=== PATIENT | female | born 1980 | race Caucasian/White ===

== ENCOUNTER 2018-12-16 12:53 | Emergency (ER) | payer BC ==
[2018-12-16 13:21] LABS: BASOPHILS # (AUTO) 0.1 10^3/uL (0.0-0.1); BASOPHILS % (AUTO) 0.6 %; HGB - HEMOGLOBIN 13.3 g/dL (12.0-16.0); LYMPHOCYTES % (AUTO) 4.8 %; MEAN CORPUSCULAR HEMOGLOBIN 26.7 pg (27.0-31.0); MEAN CORPUSCULAR HGB CONC 31.7 g/dL (32.0-36.0); MEAN CORPUSCULAR VOLUME 84.1 fL (81.0-99.0); MEAN PLATELET VOLUME 9.2 fL (7.9-10.8); MONOCYTES # (AUTO) 0.5 10^3/uL (0.0-1.0); MONOCYTES % (AUTO) 2.4 %; NEUTROPHILS # (AUTO) 18.6 10^3/uL (1.5-6.6); NEUTROPHILS % (AUTO) 91.5 %; PLT - PLATELET COUNT 453 10^3/uL (130-450); RED BLOOD COUNT 4.98 10^6/uL (4.20-5.40); RED CELL DISTRIBUTION WIDTH 13.2 % (12.0-15.0); WHITE BLOOD COUNT 20.4 x10^3/uL (4.8-10.8)
[2018-12-16 13:33] LABS: ALBUMIN 4.6 g/dL (3.2-5.5); ALBUMIN/GLOBULIN RATIO 1.3 (1.0-2.2); BILIRUBIN,TOTAL 0.7 mg/dL (0.2-1.0); CALCIUM 9.4 mg/dL (8.5-10.3); CREATININE 0.5 mg/dL (0.4-1.0); TOTAL PROTEIN 8.1 g/dL (6.7-8.2)
[2018-12-16] MEDS ORDERED: ONDANSETRON 4 MG/2 ML VIAL IVP STA (13:49)
[2018-12-16] MEDS ORDERED: SODIUM CHLORIDE 0.9% 1,000 ML IV ONE (13:49)
[2018-12-16] MEDS ORDERED: MORPHINE 2 MG/ML CARPUJECT IVP STA (13:53)
--- NOTE | 2018-12-16 15:36 | ED Physician Documentation ---
PD HPI NVD - Stated complaint Stated Complaint: ABD PX - Chief complaint Chief Complaint: Abd Pain - History obtained from History obtained from: Patient - History of Present Illness Timing - onset: Last night Timing - duration: Hours Timing - details: Abrupt onset Severity Comments: moderate abdominal pain, located in the epigastric region without radiation Associated symptoms: Abdominal pain. No: Fever, Chest pain, Hematemesis, Melena, Hematochezia, Near syncope / syncope, Loss of appetite, Hematuria, Vaginal bleeding, Vaginal dc, Testicular pain Contributing factors: Bad food (thinks she ate some bad fish last night). No: Sick contact Improved by: Other (nothing) Worsened by: Eating, Other (or drinking) Similar symptoms before: Has not had sx before - Treatment prior to arrival Treatment prior to arrival: none - Additonal information Additional information: Pt reports multiple episodes of vomiting, has nothing left in her stomach anymore. Has been unable to tolerate fluids Review of Systems Ten Systems: 10 systems reviewed and negative Constitutional: denies: Fever Cardiac: reports: Reviewed and negative Respiratory: reports: Reviewed and negative GI: reports: Abdominal Pain, Nausea, Vomiting. denies: Abdominal Swelling, Constipation, Diarrhea, Hematemesis, Bloody / black stool Neurologic: reports: Reviewed and negative Immunocompromised: reports: Reviewed and negative PD PAST MEDICAL HISTORY - Past Medical History Past Medical History: No - Present Medications Home Medications: Ambulatory Orders Medication Instructions Recorded Confirmed Ondansetron Odt [Zofran] 4 mg TL Q6H PRN #10 tablet 12/16/18 - Allergies Allergies/Adverse Reactions: Allergies Allergy/AdvReac Type Severity Reaction Status Date / Time No Known Drug Allergies Allergy Verified 12/16/18 13:06 PD ED PE NORMAL - Vitals Vital signs reviewed: Yes - General General: Alert and oriented X 3, No acute distress, Well developed/nourished - HEENT HEENT: Atraumatic - Neck Neck: Supple, no meningeal sign, No JVD - Cardiac Cardiac: RRR - Respiratory Respiratory: No respiratory distress - Abdomen Abdomen: Soft, Non distended, Other (mild epigastric tenderness, no guarding or rebound ) - Female Female : Deferred - Rectal Rectal: Deferred - Back Back: No CVA TTP - Derm Derm: Normal color, Warm and dry, No rash - Neuro Neuro: Alert and oriented X 3 Eye Opening: Spontaneous Motor: Obeys Commands Verbal: Oriented GCS Score: 15 - Psych Psych: Normal mood, Normal affect Results - Vitals Vitals: Vital Signs - 24 hr 12/16/18 13:02 Temperature 36.7 C Heart Rate 54 L Respiratory 16 Rate Blood Pressure 125/82 H O2 Saturation 100 Oxygen O2 Source Room air - Labs Labs: Laboratory Tests 12/16/18 12/16/18 13:15 13:15 WBC 20.4 H RBC 4.98 Hgb 13.3 Hct 41.9 MCV 84.1 MCH 26.7 L MCHC 31.7 L RDW 13.2 Plt Count 453 H MPV 9.2 Neut # (Auto) 18.6 H Lymph # (Auto) 1.0 L [place] # (Auto) 0.5 Eos # (Auto) 0.0 Baso # (Auto) 0.1 Absolute Nucleated RBC 0.00 Nucleated RBC % 0.0 Sodium 139 Potassium 3.5 Chloride 104 Carbon Dioxide 23 Anion Gap 12.0 BUN 11 Creatinine 0.5 Estimated GFR (MDRD) 139 Glucose 149 H Calcium 9.4 Total Bilirubin 0.7 AST 15 ALT 18 Alkaline Phosphatase 55 Total Protein 8.1 Albumin 4.6 Globulin 3.5 Albumin/Globulin Ratio 1.3 Lipase 23 Procedures - Bedside sono Bedside sono by EMP: US of RUQ - normal appearing gallbladder, no gallstones, CBD is 0.29cm PD MEDICAL DECISION MAKING - ED course Complexity details: reviewed results, re-evaluated patient, considered differential, d/w patient ED course: food poisoning, cholecystitis, gastroenteritis, appendicitis. 38 y/o F with hx and exam as documented. Epigastric tenderness, no RLQ or RUQ tenderness Well appearing, has stable vitals, has a leukocytosis but likely due to vomiting. US performed by me shows a normal GB as documented. Pt is now tolerating fluids, feeling much better, has no pain and feels well to go home with continued supportive care. Discussed with her return precautions including fever, worsening pain, inability to tolerate PO or other concerns. . Departure - Departure Disposition: 01 Home, Self Care Clinical Impression: Food poisoning Condition: Stable Record reviewed to determine appropriate education?: Yes Instructions: ED Gastroenteritis Vs Food Poison Follow-Up: your, doctor [Other] Prescriptions: Ondansetron Odt [Zofran] 4 mg TL Q6H PRN #10 tablet PRN Reason: Nausea / Vomiting
[2018-12-16 16:39] VITALS: BP 105/59
== END 2018-12-16 16:39 | disposition home or self-care (01) ==
LOC: ED 12:53
DX: T61.91XA Toxic effect of unspecified seafood, accidental (unintentional), initial encounter (principal); R11.2 Nausea with vomiting, unspecified; R10.13 Epigastric pain
CPT/HCPCS: 36415; 80053; 83690; 85025; 96361; 96374; 99283